=== PATIENT | female | born 1975 | race Caucasian/White ===

== ENCOUNTER 2020-04-25 06:42 | Outpatient (NON) | payer BC, SELFPAY ==
[2020-04-28 01:48] LABS: SARS-CoV-2 RNA PCR Negative
== END 2020-04-25 06:43 ==
LOC: ANHCOVIDDT 06:53
PROVIDERS: PCP Family Medicine Adolescent Medicine; Visit Provider Family Medicine Adolescent Medicine
DX: J02.9 Acute pharyngitis, unspecified (principal); R50.9 Fever, unspecified
CPT/HCPCS: 87635; C9803; U0003

== ENCOUNTER 2021-07-02 09:36 | Outpatient (CLI) | payer BC, SELFPAY ==
[2021-07-02 11:07] LABS: Hematocrit 41.9 % (37.0-47.0); Mean Corpuscular HGB Conc 33.4 g/dl (32-36); Mean Corpuscular Hemoglobin 32.3 pg (26-34); Mean Corpuscular Volume 96.5 fl (80-100); Mean Platelet Volume 10.1 fl (7.4-10.4); Platelet Count Result 404 k/mm3 (150-375); Red Blood Count 4.34 M/mm3 (4.2-5.4); Red Cell Distribution Width 12.8 % (11.5-14.5); White Blood Count 7.4 K/mm3 (4.5-10.0)
[2021-07-02 11:26] LABS: Vitamin D 25 Hydroxy 25.5 ng/mL
[2021-07-02 11:48] LABS: Alanine Aminotransferase 21 U/L (4-35); Albumin Level 4.3 g/dL (3.5-5.1); Alkaline Phosphatase 83 U/L (38-126); Anion Gap 4 mmol/L (8-16); Aspartate Amino Transferase 26 U/L (14-36); Bilirubin,Total 0.7 mg/dL (0.2-1.3); Blood Urea Nitrogen 9 mg/dL (7-17); Calcium 9.1 mg/dL (8.4-10.2); Carbon Dioxide 24 mmol/L (22-30); Chloride 108 mmol/L (98-107); Cholesterol 298 mg/dL (0-200); Estimated Glomerular Filt Rate 60; Glucose 101 mg/dL (65-110); HDL Direct 50 mg/dL; Magnesium 2.1 mg/dL (1.6-2.3); Potassium 4.2 mmol/L (3.4-5.0); Sodium 136 mmol/L (137-145); Triglycerides 305 mg/dL (<150)
[2021-07-02 12:00] LABS: LDL Cholesterol Direct 188 mg/dL
[2021-07-02 12:18] LABS: Cortisol Random 3.54 ug/dL
[2021-07-04 06:43] LABS: FSH 2.5 mIU/mL (***); LH 2.1 mIU/mL (***); Progesterone 7.5 ng/mL (***)
[2021-07-05 23:35] LABS: Testosterone Total 21 ng/dL (2-45)
== END 2021-07-02 09:37 | disposition home or self-care (01) ==
LOC: ANHLAB 09:38
PROVIDERS: PCP Family Medicine; Visit Provider Nurse Practitioner Family
DX: R53.83 Other fatigue (principal); L68.9 Hypertrichosis, unspecified; Z13.220 Encounter for screening for lipoid disorders; G25.81 Restless legs syndrome; Z68.31 Body mass index [BMI] 31.0-31.9, adult; L60.8 Other nail disorders
CPT/HCPCS: 36415; 80053; 80061; 82306; 82533; 82607; 82672; 83001; 83002; 83525; 83735; 84144; 84403; 84443; 85027

== ENCOUNTER 2021-08-29 09:57 | Outpatient (CLI) | payer BC, SELFPAY | END 2021-08-29 09:58 | disposition home or self-care (01) | PROVIDERS: PCP Family Medicine; Visit Provider Otolaryngology | DX: H93.11 Tinnitus, right ear (principal) | CPT/HCPCS: 92557; 92567 ==

== ENCOUNTER 2021-09-24 09:22 | Outpatient (CLI) | payer BC, SELFPAY ==
[2021-09-24 09:53] LABS: Cholesterol 267 mg/dL (0-200); HDL Direct 47 mg/dL; Triglycerides 143 mg/dL (<150)
[2021-09-24 10:04] LABS: LDL Cholesterol Direct 161 mg/dL
[2021-09-24 10:47] LABS: Vitamin D 25 Hydroxy 48.5 ng/mL
== END 2021-09-24 09:23 | disposition home or self-care (01) ==
PROVIDERS: PCP Family Medicine; Visit Provider Nurse Practitioner Family
DX: E55.9 Vitamin D deficiency, unspecified (principal); E78.5 Hyperlipidemia, unspecified
CPT/HCPCS: 36415; 80061; 82306

== ENCOUNTER → 2021-11-02 00:06 | Outpatient (CLI) | payer BC, SELFPAY ==
[2021-11-02 11:29] LABS: SARS-CoV-2 RNA PCR Positive
== END ==
PROVIDERS: PCP Nurse Practitioner Family; Visit Provider Nurse Practitioner Family
DX: U07.1 COVID-19 (principal)
CPT/HCPCS: C9803; U0003; U0005

== ENCOUNTER 2022-07-30 11:21 | Outpatient (CLI) | payer BC, SELFPAY ==
[2022-07-30 11:42] LABS: Basophils Absolute Auto 0.1 K/mm3 (0.0-0.1); Basophils Percent Auto 0.8 % (0.2-1.2); Eosinophils Absolute Auto 0.2 K/mm3 (0-0.3); Hematocrit 41.7 % (37.0-47.0); Hemoglobin 14.2 g/dL (12.0-15.0); Immature Granulocyte Absolute 0.05 K/mm3 (0.00-0.031); Immature Granulocyte Percent A 0.5 % (0-0.5); Lymphocytes Percent Auto 29.2 % (18.3-44.2); Mean Corpuscular HGB Conc 34.1 g/dl (32-36); Mean Corpuscular Hemoglobin 31.3 pg (26-34); Mean Corpuscular Volume 91.9 fl (80-100); Mean Platelet Volume 9.9 fl (7.4-10.4); Monocytes Absolute Auto 0.8 K/mm3 (0.1-0.6); Monocytes Percent Auto 7.9 % (2.6-8.5); Neutrophils Absolute Auto 5.7 K/mm3 (1.3-6.7); Neutrophils Percent Auto 59.6 % (45.5-73.1); Platelet Count Result 394 k/mm3 (150-375); Red Blood Count 4.54 M/mm3 (4.2-5.4); Red Cell Distribution Width 12.9 % (11.5-14.5); White Blood Count 9.6 K/mm3 (4.5-10.0)
[2022-07-30 11:59] LABS: Hemoglobin A1C 5.4 % (<5.7)
[2022-07-30 12:07] LABS: Alanine Aminotransferase 18 U/L (6-35); Albumin Level 4.4 g/dL (3.5-5.1); Alkaline Phosphatase 83 U/L (38-126); Anion Gap 6 mmol/L (8-16); Aspartate Amino Transferase 23 U/L (14-36); Bilirubin,Total 0.5 mg/dL (0.2-1.3); Blood Urea Nitrogen 15 mg/dL (7-17); Calcium 9.5 mg/dL (8.4-10.2); Carbon Dioxide 23 mmol/L (22-30); Chloride 108 mmol/L (98-107); Estimated Glomerular Filt Rate > 60; Glucose 84 mg/dL (65-110); Magnesium 2.2 mg/dL (1.6-2.3); Potassium 4.3 mmol/L (3.4-5.0); Sodium 137 mmol/L (137-145)
[2022-07-30 12:17] LABS: Free T4 Free Thyroxine 0.92 ng/mL (0.78-2.19); Vitamin D 25 Hydroxy 46.7 ng/mL
== END 2022-07-30 11:22 | disposition home or self-care (01) ==
LOC: ANHLAB 11:23
PROVIDERS: PCP Family Medicine; Visit Provider Nurse Practitioner Family
DX: R53.83 Other fatigue (principal); F41.8 Other specified anxiety disorders; E55.9 Vitamin D deficiency, unspecified; E78.2 Mixed hyperlipidemia
CPT/HCPCS: 36415; 80053; 82306; 82607; 83036; 83735; 84439; 84443; 85025

== ENCOUNTER 2023-01-21 11:30 | Outpatient (CLI) | payer BC, SELFPAY ==
[2023-01-21 11:50] LABS: Basophils Absolute Auto 0.1 K/mm3 (0.0-0.1); Basophils Percent Auto 0.7 % (0.2-1.2); Eosinophils Absolute Auto 0.1 K/mm3 (0-0.3); Eosinophils Percent Auto 1.5 % (0-4.4); Hematocrit 42.2 % (37.0-47.0); Hemoglobin 14.1 g/dL (12.0-15.0); Immature Granulocyte Absolute 0.06 K/mm3 (0.00-0.031); Immature Granulocyte Percent A 0.6 % (0-0.5); Lymphocytes Absolute Auto 2.35 K/mm3 (0.9-3.2); Lymphocytes Percent Auto 24.5 % (18.3-44.2); Mean Corpuscular HGB Conc 33.4 g/dl (32-36); Mean Corpuscular Hemoglobin 31.8 pg (26-34); Mean Corpuscular Volume 95.3 fl (80-100); Mean Platelet Volume 9.9 fl (7.4-10.4); Monocytes Absolute Auto 0.7 K/mm3 (0.1-0.6); Monocytes Percent Auto 7.4 % (2.6-8.5); Neutrophils Absolute Auto 6.3 K/mm3 (1.3-6.7); Neutrophils Percent Auto 65.3 % (45.5-73.1); Platelet Count Result 380 k/mm3 (150-375); Red Blood Count 4.43 M/mm3 (4.2-5.4); Red Cell Distribution Width 12.3 % (11.5-14.5); White Blood Count 9.6 K/mm3 (4.5-10.0)
[2023-01-21 13:32] LABS: Alanine Aminotransferase 18 U/L (6-35); Albumin Level 4.3 g/dL (3.5-5.1); Alkaline Phosphatase 78 U/L (38-126); Anion Gap 6 mmol/L (8-16); Aspartate Amino Transferase 21 U/L (14-36); Bilirubin,Total 0.2 mg/dL (0.2-1.3); Blood Urea Nitrogen 9 mg/dL (7-17); CRP < 0.5 mg/dL (<1.0); Calcium 9.4 mg/dL (8.4-10.2); Carbon Dioxide 26 mmol/L (22-30); Chloride 104 mmol/L (98-107); Estimated Glomerular Filt Rate > 60; Glucose 85 mg/dL (65-110); Potassium 4.1 mmol/L (3.4-5.0); Sodium 136 mmol/L (137-145)
[2023-01-21 14:30] LABS: Erythrocyte Sedimentation Rate 11 mm/hr (0-20)
== END 2023-01-21 11:31 | disposition home or self-care (01) ==
PROVIDERS: PCP Family Medicine; Visit Provider Internal Medicine Hematology & Oncology
DX: D75.838 Other thrombocytosis (principal)
CPT/HCPCS: 36415; 80053; 85025; 85652; 86140

== ENCOUNTER 2024-07-22 12:06 | Outpatient (CLI) | payer BC, SELFPAY ==
--- NOTE | ~2024-07-22 | XR_ITS ---
EXAMINATION: XR sacrum coccyx min 2V DATE: 07/22/2024 12:32 INDICATION: Low back pain, unspecified. TECHNIQUE: 3 views of the sacrum and coccyx were obtained. COMPARISON: None. FINDINGS: There is lumbar levoscoliosis and mild spondylosis. No fracture. There is mild osteoarthrit is of the sacroiliac joints. IMPRESSION: 1. Mild osteoarthritis of the sacroiliac joints. Reviewed, dictated and finalized at location [facility]. [facility]
--- NOTE | ~2024-07-22 | XR_ITS ---
EXAMINATION: XR lumbar spine 2-3V DATE: 07/22/2024 12:32 INDICATION: Low back pain, unspecified. TECHNIQUE: 3 views of lumbar spine were obtained. COMPARISON: None. FINDINGS: There is 13 degrees levoscoliosis of lumbar spine. Vertebral body heights are normal. There is mildly decreased disc height at L2-L3. There are endplate osteophytes at most levels. There is mu ltilevel [id number]-[id number] facet joint osteoarthritis. IMPRESSION: 1. Mild lumbar spondylosis. 2. Lumbar levoscoliosis. Reviewed, dictated and finalized at location A. [facility]
--- OUTSIDE RECORDS SUMMARY | 2024-07-22 12:10 | XMS_ITS | Clinical Summary ---
Author Organization [facility] [employer] Address [address] [place] [address] Care Team Providers Care Fruit Or Nut Farmer Name Role Phone Unavailable Primary Care Provider Unavailabl e Source Comments [facility] [employer],non-owned Affiliates and Associated Physician Practices is amultiple site organization consisting of ambulatory clinics and hospital sitesin [place], [place], [place] and [place]. This disclosure is being madepursuant to the Care Everywhere program and may not contain all information available regarding this patient. Last updated 18.[facility] [employer] Social History Tobacco Use Types Packs/Day Years Used Date Smoking Tobacco: Never Assessed Sex and Gender Information Value Date Recorded Sex Assigned at Not on file Gender Identity Not on file Sexual Orientation Not on file Plan of Treatment Health Maintenance Due Date Last Done Comments COLOGUARD (AGES 45-75) - COL ON CA SCREENING 1975 COLON MONITORING 1975 COLONOSCOPY - COLON CA SCREENING 1975 CT COLONOGRAPHY - COLON CA SCREENING 1975 Colorectal Cancer Screening 1975 FIT - COLON CA SCREENING 1975 FLEX SIG - COLON CA SCREENING 1975 LIPID TESTING 1975 MAMMOGRAM 1975 PAP SMEAR 1975 HIV SCREENING 1990 HEPATITIS C SCREENING 02/05/1993 DTAP/TDAP/TD VACCINES (1 - Tdap) 1994 HEPATITIS B VACCINE (1 of 3 - 19+ 3-dose series) 1994 COVID-19 VACCINE ( - 2023-2 5 season) 2024 INFLUENZA VACCINE (#1) 2024 DEPRESSION SCREENING 06/01/2024 ZOSTER VACCINE (1 of 2) 2025 HIB VACCINE Aged Out No longer eligi ble based on patient's age to complete this topic HPV VACCINE Aged Out No longer eligi ble based on patient's age to complete this topic MENINGOCOCCAL (Group B) VACCINE Aged Out No longer eligible based on patient's age to complete this topic MENINGOCOCCAL VACCINE Aged Out No cristofer chelsea eligible based on patient's age to complete this topic PNEUMOCOCCAL VACCINE Aged Out No long er eligible based on patient's age to complete this topic
--- OUTSIDE RECORDS SUMMARY | 2024-07-22 12:10 | XMS_ITS | Referral Summary ---
Author Organization [facility] Address [address] [place] [address] Care Team Providers Care Java Application Engineer Name Role Phone Yee Kee VICE PRESIDENT GLOBAL ADVERTISING SALES Unavailable [phone] Austen Law MD Primary Care Prov ider Allergies Active Allergy Reactions Criticality Noted Date Comments Codeine Itching Low 02/15/2021 Meperidine Vomiting,Nausea And Vomiting Low 021 Medications buPROPion XL (WELLBUTRIN XL) 150 mg 24 hr tabletIndicatio ns:to counter side effects from cymbalta Take 450 mg by mouth every morning 10/18/2020 Active multivitamin capsuleIndicati ons:Vitamin Deficiency Prevention Take 1 capsule by mouth every morning Active rOPINIRole (REQUIP) 2 mg tablet Take 1 tablet (2 mg total) by mouth nightly Active desvenlafaxine ER 50 mg 24 hr tablet Take 1 tablet (50 mg total) by mouth daily Active phentermine 37.5 mg capsule Take by mouth Active tiZANidine (ZANAFLEX) 2 mg tablet Take 1 tablet (2 mg total) by mouth 3 (three) times a day as needed 08/11/2023 Active estradioL (CLIMARA) 0.075 mg/24 hrIndications:V asomotor Symptoms associated with Menopause Place 1 patch on the skin once a week 4 patch 3 11/06/2023 5 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 Overview (10/16/2023): Added automatically from request for surgery [id number] Added automatically from request for surgery [id number] Social History Tobacco Use Types Packs/Day Years Used Date Smoking Tobacco: Former Cigarettes Smokeless Tobacco: Never Tobacco Cessation:Counseling Given: Not Answered Comments:Quit social smoking ~2015 AUDIT-C Answer Date [...] Orientation Straight 01/13/2021 8: 05 PM CDT Last Filed Vital Signs Vital Sign Reading Time Taken Comments Blood Pressure 113/76 10/16/2023 11:29 AM CDT Pulse 81 10/16/2023 11:29 AM CDT Temperature 36.7 C (98.1 F) 10/16/2023 11:29 AM CDT Respiratory Rate 16 10/16/2023 11:29 AM CDT Oxygen Saturation 99% 10/16/2023 11:29 AM CDT Inhaled Oxygen Concentration - - Weight 77.6 kg (171 lb) 10/16/2023 11:29 AM CDT Height 162 cm (5' 3.78 ) 10/16/2023 11:29 AM CDT Body Mass Index 29.55 10/16/2023 11:29 AM CDT Plan of Treatment Not on file Procedures Procedure Name Priority Date/Time Associated Diagnosis Comments PAP AND HIGH RISK HPV, REFLEX TO GENOTYPING Routine 10/19/2023 7:27 AM CDT Adenocarcinoma in situ of cervix SCREENING MAMMOGRAM BILATERAL W ALOK Schedule Routine, Read Routine (OP Routine) 11/27/2021 2:38 PM CDT Adenocarcinoma in situ of cervix Encounter for screening mammogram for malignant neoplasm of breast from Last 3 Months or Most Recently Relevant to Health Maintenance Results * Pap and High Risk HPV and Genotyping (Cytology Component) (10/19/2023 7:27 AM CDT) Thin prep (Pap test) 10/19/2023 7:27 AM CDT 10/19/2023 9:37 AM CDT Narrative PATHOLOGY [facility] - 10/22/2023 9:21 AM CDT EPIC results best viewed via link to PDF [facility] [place] [address] Note to Patients: This report may contain a detailed description of human tissue sent by a health care provider to the laboratory for pathologic evaluation. The content of this report is essential for diagnosis and may provide important critical findings. This information may be unfamiliar to patients to review without a medical professional present. It is advised that the patient review this report in the presence of a health care provider who can answer questions and explain the details. CYTOPATHOLOGY REPORT FINAL Patient Name: AMI RICKS Gender: F : 1975 (Age: 48) Address: [address] [place], [place] [id number] Hospital #: [id number] Service: UNKNOWN Location: Patient Type: [facility] SPECIMEN Taken: 10/19/2023 Received: 10/19/2023 Accessioned: 10/19/2023 Reported: 10/22/2023 Physician(s): Sallie Huertas M.D. FINAL INTERPRETATION SOURCE OF SPECIMEN Liquid based Thin Prep pap with HPV: STATEMENT OF ADEQUACY - Satisfactory for evaluation, vaginal smear GENERAL CATEGORIZATION: - Negative for squamous intraepithelial lesion or malignancy Comments (Normal-Negative for High Risk HPV) HPV HR 16 vaginal- Negative HPV HR 18 vaginal- Negative HPV HR non 16/18 vaginal- Negative Comment: The following Other High Risk HPV types were not detected: 31, 33, 35, 39, 45, 51, 52, 56, 58, 59, 66, and 68 ADDITIONAL INFORMATION Testing was performed using the jose manuel HPV assay ([employer] This test has been modified from the solutions engineer's instructions. Its performance characteristics were determined by [facility] in a manner consistent with CLIA requirements. This test has not been cleared or approved by the U.S. Food and Drug Administration. Test Performed by: [address] [address] Commodity Director: Feliciano Ndiaye M.D. Ph.D.; CLIA# [id number] [facility]/10/22/2023 09:21 MIK Youssef (ASCP) Report Electronically Reviewed and Signed Out By MIK Youssef (ASCP) 10/22/2023 09:21:11 Cervicovaginal Cytology (Pap Test) Disclaimer: The Pap test is a screening test used to detect cervical cancer and its precursors; it is not a diagnostic procedure. False negative and false positive results do occur. Pap test results should be interpreted in the context of pertinent clinical information and biopsy results as indicated. [facility] Clinical Laboratory Improvement Amendments (CLIA) mandate that cytologic and histologic results be correlated for laboratory senior quality engineer & improvement standards. FOR ALL HIGH-GRADE CASES we request submission of follow-up histological material and/or reports that have not been previously provided so that we may fulfill said required standards. Gross Description A. Liquid based Thin Prep pap with HPV: Vaginal - diagnostic ThinPrep Clinical Diagnosis and History Last Menstrual Period: unknown The patient is a 48 year old female with h/o AIS. Report Images and scanned documents, if included only viewable in PDF version The performance characteristics of some immunohistochemical stains, in-situ hybridization and fluorescence in-situ hybridization tests and immunophenotyping by flow cytometry cited in this report (if any) were determined by the Surgical Pathology Department at [facility] as part of an ongoing water quality analyst program and in compliance with federally mandated regulations drawn from the Clinical Laboratory Improvement Act of 1988 (CLIA '88). Some of these tests rely on the use of analyte specific reagents and are subject to specific labeling requirements by the US Food and Drug Administration. Such diagnostic tests may only be performed in a facility that is certified by the Department of Health and Human Services as a high complexity laboratory under CLIA '88. The FDA has determined that such clearance or approval is not necessary. This test is used for clinical purposes. It should not be regarded as investigational or for research. Nevertheless, federal rules concerning the medical use of analyte specific reagents require that the following disclaimer be attached to the report: This test was developed and its performance characteristics determined by the Surgical Pathology Department of [facility]. It has not been cleared or approved by the U. S. Food and Drug Administration. Sallie Huertas MD LAB CYTOLOGY ORDERABLES Final Result Performing Organization Address City/State/[facility] Co de Phone Number PATHOLOGY [facility] 3rd Floor [place], [place] [phone] * SCREENING MAMMOGRAM BILATERAL W ALOK (11/27/2021 2:38 PM CDT) Anatomical Region Laterality Modality Breast Bilateral Mammography Narrative 12/04/2021 10:11 AM CDT Mammogram Technique: Bilateral Digital Breast Tomosynthesis, Bilateral C-view 2D Screening mammogram. Views obtained: bilateral craniocaudal and bilateral mediolateral oblique. Computer Aided Detection was performed. Mammogram Findings: The present examination has been compared to a prior imaging study performed at [facility] on 01/29/2015. The breasts are heterogeneously dense, which may obscure small masses. There are round calcifications with grouped distribution in the middle of the right breast at 3 o'clock. There is no suspicious abnormality in the left breast. Impression: Calcifications in the right breast require additional evaluation. A diagnostic mammogram of the right breast is recommended at this time. OVERALL FINAL ASSESSMENT: BI-RADS CATEGORY 0: Incomplete: Need additional imaging evaluation. Procedure Note Noy Quinones MD - 12/04/2021 Mammogram Technique: Bilateral Digital Breast Tomosynthesis, Bilateral C-view 2D Screening mammogram. Views obtained: bilateral craniocaudal and bilateral mediolateral oblique. Computer Aided Detection was performed. Mammogram Findings: The present examination has been compared to a prior imaging study performed at [facility] on 01/29/2015. The breasts are heterogeneously dense, which may obscure small masses. There are round calcifications with grouped distribution in the middleof the right breast at 3 o'clock. There is no suspicious abnormality in the left breast. Impression: Calcifications in the right breast require additional evaluation. A diagnostic mammogram of the right breast is recommended at this time. OVERALL FINAL ASSESSMENT: BI-RADS CATEGORY 0: Incomplete: Need additional imaging evaluation. Sallie Huertas MD IMG MAMMO PROCEDURES Fi nal Result from Last 3 Months or Most Recently Relevant to Health Maintenance Insurance [employer] Care Teams Java Application Engineer Relationship Specialty Start Date End Date Austen Law MD [address] [place] [address] PCP - General Family Medicine 12/14/20 Yee Kee NP Nurse Practitioner Obstetrics and Gynecology 11/23/20
--- OUTSIDE RECORDS SUMMARY | 2024-07-22 12:10 | XMS_ITS | Encounter Summary ---
Author Organization [facility] Healthcare Address [address] [place] [address] Care Team Providers Care Psychometrist Name Role Phone Unavailable Primary Care Provider Unavailabl e Reason for Visit * Diagnostic Imaging (Routine) - Closed Specialty Diagnoses / Procedures Referred By Contac t Referred To Contact Procedures Breast Imaging Screening Outside Reference Referral, Self Referral ID Status Reason Start Date Expiration Date Visits Re quested Visits Authorized [id number] Closed 12/03/2021 01/02/2023 1 1 Encounter Details Date Type Department Care Team (Late st Contact Info) Description 01/29/2015 Hospital Encounter [facility] [address] [place] [address] Social History Tobacco Use Types Packs/Day Years [...] only and have not been reviewed by [facility]iology. There will be no report generated by a [facility] Radiologist. Narrative RAD_MAMMO_[facility] - 12/03/2021 11:48 AM CDT EXAMINATION: Images For Reference Purposes Only us Self Referral IMG MAMMO PROCEDURES Final Resul t RAD_MAMMO_[facility] documented in this encounter Visit Diagnoses Not on filedocumented in this encounter
--- OUTSIDE RECORDS SUMMARY | 2024-07-22 12:10 | XMS_ITS | Referral Summary ---
Author Organization [facility] Address [address] [place] [address] Care Team Providers Care Electric Arc Furnace Operator Name Role Phone Unavailable Primary Care Provider Unavailabl e Source Comments [facility],non-owned Affiliates and Associated Physician Practices is amultiple site organization consisting of ambulatory clinics and hospital sitesin [place], [place], [place] and [place]. This disclosure is being madepursuant to the Care Everywhere program and may not contain all information available regarding this patient. Last updated 18.[facility] [employer] Social History Tobacco Use Types Packs/Day Years Used Date Smoking Tobacco: Never Assessed Sex and Gender Information Value Date Recorded Sex Assigned at Not on file Gender Identity Not on file Sexual Orientation Not on file Plan of Treatment Not on file
--- OUTSIDE RECORDS SUMMARY | 2024-07-22 12:10 | XMS_ITS | Clinical Summary ---
Author Organization [facility] Address [facility] [place] [address] Care Team Providers Care Undercar Specialist Name Role Phone Yee Kee LINK TRAINER OPERATOR Unavailable [phone] Austen Law MD Primary Care Prov ider [...] (10/16/2023): Added automatically from request for surgery [id number] Added automatically from request for surgery [id number] Surgical History Surgery Date Site/Laterality Comments LAPAROSCOPY 06/01/2005 - 05/31/2006 for endometriosis DILATION AND CURETTAGE OF UTERUS [phone] pt had multiple ADENOIDECTOMY 06/01/1981 - 05/31/1982 SECTION 06/01/2012 - 05/31/2013 TUBAL LIGATION 06/01/2012 - 05/31/2013 CERVICAL CONE BIOPSY 11/29/2020 - 12/29/2020 Medical History Medical History Date Comments PONV (postoperative nausea and vomiting) with demerol Endometriosis 2003 Adenocarcinoma of cervix (CMS/HCC) (HCC) Dxd 11/2020 Family History * Patient is adopted Medical History Relation Name Comments PONV Daughter with demerol Anesthesia problems Neg Hx Relation Name Status Comments Daughter Social History Tobacco Use Types Packs/Day Years [...] Orientation Straight 01/13/2021 8: 05 PM CDT Obstetrics History Para Term AB IAB SAB Ectopic Multiple Livin g Live Births 2 2 2 2 Date Outcome GA Total Labor Labor/2nd/3rd Weight Sex Type Anes PTL Gregoria A1 A5 Name Clin Term Term Last Filed Vital Signs Vital Sign Reading [...] 10/16/2023 11:29 AM CDT Plan of Treatment Health Maintenance Due Date Last Done Comments Colon Cancer Screening-Colonoscopy 1975 Depression Screening 1975 Hepatitis C Screening 1975 DTaP/Tdap/Td Vaccine (1 - Tdap) 1986 Hepatitis B Screening 1993 Regular Well Visit/Exam 18-64 1993 Breast Cancer Screening-Mammogram 11/27/2022 11/27/2021 Covid-19 Vaccine (3 - 2023-2 5 season) 2024 12/12/2020, 11/21/2020 Influenza Vaccine (#1) 2024 Cervical Cancer Screening 10/18/20242023, 10/10/2022, 10/04/2021 Pneumococcal vaccine <65 Aged Out No longer eligible based on patient's age to complete this topic Procedures Procedure Name Priority Date/Time Associated Diagnosis [...] CDT 10/19/2023 9:37 AM CDT Narrative PATHOLOGY [facility] - 10/22/2023 9:21 AM CDT [facility] results best viewed via link to PDF [facility] [place] [address] Note to Patients: This report may contain [...] Gender: F : 1975 (Age: 48) Address: [address] [place] [address] Hospital #: [id number] Service: UNKNOWN Location: Patient Type: [facility] SPECIMEN Taken: 10/19/2023 Received: 10/19/2023 Accessioned: 10/19/2023 [...] performed using the jose manuel HPV assay ([employer] This test has been modified from the timber rider's instructions. Its performance characteristics were determined by [facility] in a manner consistent with CLIA requirements. This test has not been cleared or approved by the U.S. Food and Drug Administration. Test Performed by: [address] [address] Publicity Person: Feliciano Ndiaye M.D. Ph.D.; CLIA# [id number] [facility]/10/22/2023 09:21 MIK Youssef (ASCP) Report Electronically Reviewed [...] clinical information and biopsy results as indicated. [facility] Clinical Laboratory Improvement Amendments (CLIA) mandate that cytologic and histologic results be correlated for laboratory quality control tech & improvement standards. FOR ALL HIGH-GRADE CASES [...] determined by the Surgical Pathology Department at [facility] as part of an ongoing quality officer program and in compliance with federally mandated [...] determined by the Surgical Pathology Department of [facility]. It has not been cleared or approved by the U. S. Food and Drug Administration. Sallie Huertas MD LAB CYTOLOGY ORDERABLES Final Result PATHOLOGY [facility] 3rd Floor [place], [place] [phone] * SCREENING MAMMOGRAM BILATERAL W ALOK (11/27/2021 2:38 PM CDT) Anatomical Region Laterality Modality Breast Bilateral Mammography Narrative 12/04/2021 10:11 AM CDT Mammogram Technique: Bilateral Digital Breast Tomosynthesis, Bilateral C-view 2D Screening mammogram. Views obtained: bilateral craniocaudal and bilateral mediolateral oblique. Computer Aided Detection was performed. Mammogram Findings: The present examination has been compared to a prior imaging study performed at [facility] on 01/29/2015. The breasts are heterogeneously dense, [...] to a prior imaging study performed at [facility] on 01/29/2015. The breasts are heterogeneously dense, [...] Most Recently Relevant to Health Maintenance Insurance [employer] [place] [employer] [place] Care Teams Undercar Specialist Relationship Specialty Start Date End Date Austen Law MD [address] [place] [address] PCP - General Family Medicine 12/14/20 Yee Kee NP Nurse Practitioner Obstetrics and Gynecology 11/23/20
--- OUTSIDE RECORDS SUMMARY | 2024-07-22 12:10 | XMS_ITS | Encounter Summary ---
Author Organization [facility] Healthcare Address [facility] [place] [address] Care Team Providers Care Employer Relations Representative Name Role Phone Unavailable Primary Care Provider Unavailabl e Reason for Visit * Diagnostic Imaging (Routine) - Closed Specialty Diagnoses / Procedures Referred By Contac t Referred To Contact Procedures Breast Imaging Screening Outside Reference Referral, Self Referral ID Status Reason Start Date Expiration Date Visits Re quested Visits Authorized [id number] Closed 12/04/2021 01/03/2023 1 1 Encounter Details Date Type Department Care Team (Late st Contact Info) Description 02/11/2018 Hospital Encounter [facility] [address] [place] [id number] Social History Tobacco Use Types Packs/Day Years [...] only and have not been reviewed by [facility]. There will be no report generated by a [facility] Radiologist. Narrative RAD_MAMMO_BJ - 12/04/2021 1:58 PM CDT EXAMINATION: Images For Reference Purposes Only us Self Referral IMG MAMMO PROCEDURES Final Resul t RAD_MAMMO_[facility] documented in this encounter Visit Diagnoses Not on filedocumented in this encounter
--- OUTSIDE RECORDS SUMMARY | 2024-07-22 12:10 | XMS_ITS | Clinical Summary ---
Author Organization [facility] (Formerly [facility])[3] Juwan Anthony Address [address] [place] [address] Care Team Providers Care Forensic Chemist Name Role Phone Rupert Bull MD Primary Care Provider Allergies Active Allergy Reactions Criticality Noted Date Comments Codeine Itching Low 02/15/2021 Meperidine Nausea and Vomiting Low 12/18/2020 Medications desvenlafaxine (PRISTIQ) 50 mg Extended Release 24 hour tablet Take 50 mg by mouth daily with breakfast. Active Phentermine 37.5 mg Capsule Take by mouth. Active rOPINIRole (REQUIP) 2 mg Tablet Take 2 mg by mouth daily at bedtime. 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 Overview (01/21/2023): Added automatically from request for surgery [id number] Family History Relation Name Status Comments Daughter 1 Alive Daughter 2 Alive Social History Tobacco Use Types Packs/Day Years Used Date Smoking Tobacco: Some Days Cigarettes Smokeless Tobacco: Never Alcohol Use Standard Drinks/Week Comments Not Currently 0 (1 standard drink = 0.6 oz pur e alcohol) Comments Unknown Sex and Gender Information Value Date Recorded Sex Assigned at Not on file Legal Sex Female 8:36 AM CDT Gender Identity Not on file Sexual Orientation Not on file Last Filed Vital Signs Vital Sign Reading Time Taken Comments Blood Pressure 131/75 01/21/2023 10:36 AM CDT Pulse 109 01/21/2023 10:36 AM CDT Temperature 36.2 C (97.2 F) 01/21/2023 10:36 AM CDT Respiratory Rate 12 01/21/2023 10:36 AM CDT Oxygen Saturation 97% 01/21/2023 10:36 AM CDT Inhaled Oxygen Concentration - - Weight 74.4 kg (164 lb) 01/21/2023 10:36 AM CDT Height - - Body Mass Index - - Plan of Treatment Health Maintenance Due Date Last Done Comments PNEUMOCOCCAL VACCINE 0-64 YE ARS (1 of 2 - PCV) 1981 DTAP/TDAP/TD VACCINES (1 - Tdap) 1994 HEPATITIS B VACCINES (1 of 3 - 19+ 3-dose series) 1994 COLORECTAL SCREENING 02/11/2020 Colorectal Cancer Screening 02/11/2020 FIT-DNA Q 3 years 02/11/2020 FIT/FOBT Q 1 year 02/11/2020 Flex Sig/CT Colonography Q 5 years 02/11/2020 BREAST CANCER SCREENING 01/07/2023 01/07/2022, 11/27 INFLUENZA VACCINE (#1) 2023 CERVICAL CANCER SCREENING 10/10/2025 10/10/2022 Insurance [employer] Care Teams Forensic Chemist Relationship Specialty Start Date End Date Rupert Bull MD [address] [place] [address] PCP - General Family Practice 01/21/23
--- OUTSIDE RECORDS SUMMARY | 2024-07-22 12:10 | XMS_ITS | Patient Health Summary ---
Author Organization [facility] Address [address] [place] [address] Care Team Providers Care Lurer Name Role Phone Unavailable Primary Care Provider Unavailabl e Note from [facility],non-owned Affiliates and Associated Physician Practices is amultiple site organization consisting of ambulatory clinics and hospital sitesin [place], [place]. This disclosure is being madepursuant to the Care Everywhere program and may not contain all information available regarding this patient. Last updated [address] [employer] Social History Tobacco Use Types Packs/Day Years Used Date Smoking Tobacco: Never Assessed Sex and Gender Information Value Date Recorded Sex Assigned at Not on file Gender Identity Not on file Sexual Orientation Not on file
== END 2024-07-22 12:07 | disposition home or self-care (01) ==
PROVIDERS: PCP Family Medicine; Visit Provider Physician Assistant Medical
DX: M47.898 Other spondylosis, sacral and sacrococcygeal region (principal); M47.816 Spondylosis without myelopathy or radiculopathy, lumbar region; M41.86 Other forms of scoliosis, lumbar region
CPT/HCPCS: 72100; 72220

== ENCOUNTER 2025-04-01 13:18 | Outpatient (CLI) | payer BC, SELFPAY ==
--- OUTSIDE RECORDS SUMMARY | 2015-01-29 | XMS_ITS | Encounter Summary ---
Author Organization [facility] Healthcare Address [address] [place] [address] Care Team Providers Care [place] Seamer Name Role Phone Unavailable Primary Care Provider Unavailabl e Reason for Visit * Diagnostic Imaging (Routine) - Closed Specialty Diagnoses / Procedures Referred By Contac t Referred To Contact Procedures Breast Imaging Screening Outside Reference Referral, Self Referral ID Status Reason Start Date Expiration Date Visits Re quested Visits Authorized [id number] Closed 12/03/2021 01/02/2023 1 1 Encounter Details Date Type Department Care Team (Late st Contact Info) Description 01/29/2015 Hospital Encounter [facility] [address] [place] [address] Social History Tobacco Use Types Packs/Day Years Used Date Smoking Tobacco: Former Cigarettes Smokeless Tobacco: Never Comments:Quit social smoking ~2015 AUDIT-C Answer Date Recorded Q1: How often do you have a drink containing alc ohol? Never 02/19/2021 Average Number of Drinks Not on file 021 Frequency of Binge Drinking Not on file 01/31 Comments No Sex and Gender Information Value Date Recorded Sex Assigned at Not on file Legal Sex Female 1:38 PM CDT Gender Identity Female 01/13/2021 8:05 PM CDT Sexual Orientation Straight 01/13/2021 8: 05 PM CDT documented as of this encounter Functional Status documented as of this encounter Plan of Treatment Not on file documented as of this encounter Procedures Procedure Name Priority Date/Time Associated Diagnosis Comments BREAST IMAGING MG SCREENING OUTSIDE REFERENCE Routine 01/29/2015 12:00 AM CDT documented in this encounter Results * Breast Imaging Screening Outside Reference (01/29/2015 12:00 AM CDT) Impressions RAD_MAMMO_[facility] - 12/03/2021 11:48 AM CDT These images are for Reference purposes only and have not been reviewed by [facility]. There will be no report generated by a [facility] Radiologist. Narrative RAD_MAMMO_[facility] - 12/03/2021 11:48 AM CDT EXAMINATION: Images For Reference Purposes Only us Self Referral IMG MAMMO PROCEDURES Final Resul t RAD_MAMMO_[facility] documented in this encounter Visit Diagnoses Not on filedocumented in this encounter
--- OUTSIDE RECORDS SUMMARY | 2018-02-11 | XMS_ITS | Encounter Summary ---
Author Organization [facility] Healthcare Address [facility] [place] [address] Care Team Providers Care Psychology Lecturer Name Role Phone Unavailable Primary Care Provider Unavailabl e Reason for Visit * Diagnostic Imaging (Routine) - Closed Specialty Diagnoses / Procedures Referred By Contac t Referred To Contact Procedures Breast Imaging Screening Outside Reference Referral, Self Referral ID Status Reason Start Date Expiration Date Visits Re quested Visits Authorized [id number] Closed 12/04/2021 01/03/2023 1 1 Encounter Details Date Type Department Care Team (Late st Contact Info) Description 02/11/[address] [facility]iology [facility] [address] [place] [id number] Social History Tobacco Use Types Packs/Day Years [...] BREAST IMAGING MG SCREENING OUTSIDE REFERENCE Routine 02/11/2018 12:00 AM CDT documented in this encounter Results * Breast Imaging Screening Outside Reference (02/11/2018 12:00 AM CDT) Impressions [facility]_MAMMO[facility] - 12/04/2021 1:58 PM CDT These images are for Reference purposes only and have not been reviewed by [facility]. There will be no report generated by a [facility] Radiologist. Narrative RAD_MAMMO_[facility] - 12/04/2021 1:58 PM CDT EXAMINATION: Images For Reference Purposes Only us Self Referral IMG MAMMO PROCEDURES Final Resul t RAD_MAMMO_[facility] documented in this encounter Visit Diagnoses Not on filedocumented in this encounter
--- NOTE | ~2025-04-01 | MR_ITS ---
EXAMINATION: MR lumbar spine wo con DATE: 04/01/2025 14:15 INDICATION: Other forms of scoliosis, site unspecified. TECHNIQUE: Magnetic resonance imaging (MRI) of the lumbar spine was performed without intravenous contrast. Sequences included sagittal T2-weighted FSE, sagittal T2-weighted FS FSE, sagittal T1-weighted FSE, and axial T2-weighted FSE. COMPARISON: Lumbar spine radiographs 07/22/2024 FINDINGS: There is 16 degrees levoscoliosis of lumbar spine. Vertebral body heights are normal. There is mildly decreased disc height at L4-L5 and L5-S1. The distal spinal cord signal intensity is normal. The conus medullaris is at L1. The following disc levels are specifically discussed: L1-L2: There is a central protrusion. There is mild bilateral facet joint osteoarthritis. There is no neural foraminal stenosis. There is mild central canal stenosis. L2-L3: The disc is bulging and has an annular fissure. There is mild bilateral facet joint osteoarthritis. There is mild bilateral neural foraminal stenosis. There is mild central canal stenosis. L3-L4: The disc is mildly bulging. There is mild right and moderate left facet joint osteoarthritis. There is mild bilateral neural foraminal stenosis. There is no central canal stenosis. L4-L5: The disc is bulging and has an annular fissure. There is severe bilateral facet joint osteoarthritis. There is mild bilateral neural foraminal stenosis. There is mild central canal stenosis. L5-S1: The disc is bulging and has an annular fissure. There is mild right and moderate left facet joint osteoarthritis. There is mild left neural foraminal stenosis. There is mild central canal stenosis. IMPRESSION: 1. Mild lumbar spondylosis. 2. Lumbar levoscoliosis. Reviewed, dictated and finalized at location E. RTISING JOB TITLES
--- NOTE | ~2025-04-01 | MR_ITS ---
EXAMINATION: MR thoracic spine wo con DATE: 04/01/2025 14:16 INDICATION: Scoliosis, unspecified. TECHNIQUE: Magnetic resonance imaging (MRI) of the thoracic spine was performed without intravenous contrast. COMPARISON: Lumbar spine radiographs 07/02/2024 FINDINGS: There is 7 degrees dextrocurvature of cervicothoracic spine. There is 10 degrees levoscoliosis of mid thoracic spine. There is 10 degrees levoscoliosis of thoracolumbar spine. Vertebral body heights are normal. There is a hemangioma in T2. There is mildly decreased disc height at T5-T6 and T7-T8. The disc do not extend beyond the endplate margins in thoracic spine. There is multilevel mild facet joint osteoarthritis. At T1-T2, there is mild left neural foraminal stenosis. There is no central canal stenosis and thoracic spine. The spinal cord signal intensity is normal. IMPRESSION: 1. Mild thoracic spondylosis. 2. Scoliosis. Reviewed, dictated and finalized at location E. OPERATOR
--- OUTSIDE RECORDS SUMMARY | 2025-04-01 13:22 | XMS_ITS | Patient Health Record ---
Author Organization [facility] [email or web address] [facility] Address [address] [facility] [address] [place] [address] Support Name Relationship Address Phone JOANNE CASTRO Guarantor Unknown [phone] Reason For Referral No Information Medications Medication SIG (Take, Route, Frequency, Duration) Notes Start Date End Date Status buPROPion HCl ER (XL) 300 MG Tablet Extended Release 24 Hour Oral Active oxyCODONE HCl 5 MG Tablet Oral Active Fluconazole 150 MG Tablet Oral Active Ibuprofen 600 MG Tablet Oral Active Amoxicillin 500 MG Capsule Oral Active DULoxetine HCl 60 MG Capsule Delayed Release Particles Oral Active hydrOXYzine HCl 25 MG Tablet Oral Active buPROPion HCl ER (XL) 150 MG Tablet Extended Release 24 Hour Oral Active rOPINIRole HCl 0.25 MG Tablet Oral Active Polyethylene Glycol 3350 17 gram Powder ORAL *Pick strength-form from [employer] for e[employer]* Active Cholecalciferol 1.25 MG (11040 UT) Capsule Oral Active Social History Social History Additional Details Category Social Info Options Details Migrated Social History Migrated Social History Tobacco Years: Current some days smoker 11/04/2021 Plan Of Treatment No Information Insurance Providers Payer Name Payer Address Payer Phone Subscriber Number Group Number Insured Name Patient Relationship to Insured Coverage Start Date Coverage End Date [facility] [address] [place] [address] [id number] GAY CASTRO Spouse - patient is the spouse of the insured
--- OUTSIDE RECORDS SUMMARY | 2025-04-01 13:22 | XMS_ITS | Data Portability ---
Author Organization [facility] Address [address] [place] [address] Care Team Providers Care Office Services Associate Name Role Phone KAROLINE YOST Primary Care Provider Assessment Encounter Date Assessment Date Assessment LastModified by Organization Details LastModified Time 08/21/2020 08/21/2020 Annual gynecological exam performed. Patient will come back in a year unless there are new symptoms. [email or web address] Not available 08/21/2020 10:26:00 11/16/2020 11/16/2020 Unbillable visit. Colpo training with Vidhya. [email or web address] Not available 11/16/2020 12:52:07 11/16/2020 11/16/2020 pt sarah well, await pathology, f/u DR sung would like to discuss hysterectomy and bladder prolapse [email or web address] Not available 11/16/2020 13:10:18 Plan of Treatment Reminders Order Date Submit Date Provider Last Modified By Organization Details Last Modified Time Details Appointments None recorded. Lab None recorded. Referral gastroenter ologist referral 2023 024 [facility], [address], [address], [place], [address], 4 05:01:01 Procedures None recorded. Surgeries None recorded. Imaging MAMMO, screening, digital, bilateral 2023 024 [facility] (Imaging), [address] [place], [address], 4 12:03:17 Medication Orders estradiol 0.075 mg/24 hr weekly transdermal patch 2023 024 [facility] #[id number], [address], [place], [place], [id number], 4 09:09:06 Slynd 4 mg (28) tablet 2020 021 [email or web address] 1 [facility] #[id number], [address], [place], [place], [id number], 1 12:29:50 Patient TargetsNo targets recorded. Patient InstructionsNo instructions recorded. 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 Referral for Screening for malignant neoplasm of colon Referring Physician: Kimberly Madden, ARCHITECTURAL TECHNICIAN, Encounter Date: 11/13/2023 Results Created Date Observation Date Name Description Value Unit Range Abnormal Flag Note LastModifiedBy Organization Detail LastModifiedTime 08/22/19 21 08/21/2020 HPV E6+E7 mRNA, quali tativ e PCR, cervi x HPV MRNA E6/E7 only, vial (cdh/dch/kh/ vwh) CANCEL LED Lynne cordova Not Available [facility] (Lab) [address], [place], [address], 08/22/2020 11:37:40 08/22/19 21 08/21/2020 pap, IG Pap test SEE RESULT S BELOW CASE REPOR T: Cytol ogy Gynec ologi aldo Repor t Case: [id number] Autho marija duncan Provi felix: Bruno Lucia Colle cted: 08/21 1117 ACCOUNTING TECHNICIAN Order ing Locat ion: [place] Patho logy Recei natalya: 08/22 1307 First Scree n: Bc Hurley , MIK Speci men: Scree afia Pap - Image d, Cervi x STATE MENT OF ADEQU ACY: Satis facto ry for evalu ation Trans forma tion zone compo nent prese nt FINAL DIAGN OSIS: Negat haley for Squam ous Intra epith elial Lesio n Elect tim matos ulises d by Bc Hurley , MIK on 2020 at 4:30 PM ----- ----- ----- ----- ----- ----- ----- ----- ----- ----- ----- ----- ----- ----- ----- ----- ----- ---- HPV RESUL TS: HPV mRNA E6/E7 : Posit haley - HPV mRNA Detec parker HPV GENOT YPE 16 (OSMIN) : Not Detec parker HPV GENOT YPE 18/45 (OSMIN) : Detec parker NOTE: This high risk HPV mRNA assay detec ts fourt een high- risk HPV types (16, 18, 31, 33, 35, 39, 45, 51, 52, 56, 58, 59, 66, 68) witho ut diffe renti ation . This assay can diffe renti ate HPV 16 from HPV 18/45 , but does not diffe renti ate betwe en HPV 18 and HPV 45. A negat haley HPV 16, 18/45 genot ype assay resul t does not exclu de the possi bilit y of cytol ogic abnor malit ies or of futur e or under lying KYUNG 1, KYUNG 3 or cance r. CHART ABLE COMME NT: Note: This speci men was revie wed by a Cytot echno logis t and/o r Patho logis t (as indic ated in this repor t) after evalu ation using the Thinp rep Imagi ng Syste m. CLINI ALDO INFOR MATIO N: Menst rual Statu s: LMP (if appli cable ): Clini aldo Histo ry/Pr eviou s Pap: Type of Neopl candelario (if appli cable ): Other Histo ry: Hormo katerine (if appli cable ): PAP EDUCA GOOD L NOTE: The Pap Test is a scree afia test with an inher ent false negat haley rate. Liqui d-bas e sampl ing may decre ase, but will not elimi daria, false negat haley resul ts. A negat haley resul t does not precl ude the prese nce and/o r devel opmen t of disea se, since the prese nce of abnor mal cells in the sampl e depen ds on the locat ion of the lesio n and sampl ing techn ique. Alexus nued regul ar scree afia is the best metho d of cance r preve ntion . If repor parker cytol ogic findi ng do not corre late with physi aldo and/o r histo rical findi ngs, furth er inves tigat ion is recom bradley d, as clini gale nugent nted. Not Available [facility] (Lab) [address], [place], [address], 08/24/2020 14:04:24 11/17/19 21 11/16/2020 SURGI ALDO PATHO LOGY surgical pathology ([facility]) SEE RESULT S BELOW CASE REPOR T: Surgi aldo Patho logy Repor t Case: [id number] Autho marija Provi felix: Yee Whitmore NP Colle cted: 11/16 1206 Order ing Locat ion: [place] Patho logy Recei natalya: 11/17 0059 Patho logis t: Martha Ziegler MD Speci mens: A) - Endoc ervix , ECC [place] B) - Cervi x, Cervi aldo Bx FINAL DIAGN OSIS: A. 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 B. Cervi x, biops y: -Ecto cervi aldo squam ous mucos a witho ut diagn ostic abnor malit y. -No squam ous intra epith elial lesio n ident ified . Elect tim montgomery d by Martha Ziegler MD on 2020 at 10:20 AM ----- ----- ----- ----- ----- ----- ----- ----- ----- ----- ----- ----- ----- ----- ----- ----- ----- ---- CHART ABLE COMME NT: The patie nt's histo ry of posit haley high- risk HPV mRNA test and negat haley Pap smear was noted . The endoc ervic al curet tage conta ins few super ficia l, detac hed fragm ents of gland ular epith elium with nucle ar hyper chrom candelario, rare apica l mitos es, and apopt osis. Immun ohist ochem ical stain for p16 was perfo rmed on block A1 and shows stron g posit ivity withi n these gland s, consi stent with adeno carci noma in situ (AIS) . Contr ols appro priat e. This case was seen in intra depar tment al revie w with agree ment on the above diagn osis on 2020. This test was devel oped and its perfo rmanc e janine cteri stics deter mined by [facility]. It has not been clear ed or appro natalya by the U. S. Food and Drug Admin istra tion. The FDA has deter mined that such clear ance or appro isabell is not neces kamala. This test may be used for clini aldo purpo se. It shoul d not be regar ded as inves tigat ional or for resea rch. This labor atory is certi fied under the Clini aldo Labor atory Impro vemen t Amend ments of 1987 (CLIA ) as quali fied to perfo rm high compl exity clini aldo labor atory testi ng. In cases which have decal cifie d tissu es, the resul ts shoul d be inter prete d with cauti on given the possi bilit y of false negat pa. The posit haley contr ols demon strat e appro priat e posit haley stain ing. The known tissu e negat haley contr ols are negat haley. The non-i mmune serum contr ol was non-r eacti ve. CLINI ALDO INFOR MATIO N: NONE GIVEN MICRO SCOPI C DESCR IPTIO N: A micro scopi c exami natio n was perfo rmed. GROSS DESCR IPTIO N: A. Endoc ervix . The speci men is label ed with the patie nt's name, mehul kingi cs and ECC brush BX. Recei natalya in forma jessee on 2 endoc ervic al brush es and consi sts of an aggre gate of red-t an mucin (1.5 x 1.0 by less than 0.1 cm), submi tted entir lora in casse tte A1. Gross ed by Doris massey B. Cervi x. The speci men is label ed with the patie nt's name, korinog raphi cs and cerv ical BX. Recei natalya in forma jessee and consi sts of a singl e white -briseno tissu e fragm ent (0.5 x 0.3 x 0.2 cm), submi tted entir lora in casse tte B1. Gross ed by Doris massey Not Available [facility] (Lab) [address], [place], [address], 04/17/2021 10:38:18 11/17/19 21 11/16/2020 SURGI ALDO PATHO LOGY surgical pathology SEE RESULT S BELOW ADDEN DUM: At the reque st of Sonia Irene, the slide s were sent out for addit ional consu ltati on at [facility] [address] [facility] [place] [address] and revie wed by Jose ruiz M.D., Ph.D. , who agree s with the origi nal diagn osis. The compl ete repor t has been scann ed into [employer]. This test was devel oped and its perfo rmanc e janine cteri stics deter mined by [facility]. It has not been clear ed or appro natalya by the U. S. Food and Drug Admin istra tion. The FDA has deter mined that such clear ance or appro isabell is not neces kamala. This test may be used for clini aldo purpo se. It shoul d not be regar ded as inves tigat ional or for resea [facility]. This labor atory is certi fied under the Clini aldo Labor atory Impro vemen t Amend ments of 1987 (CLIA ) as quali fied to perfo rm high compl exity clini aldo labor atory testi ng. In cases which have decal cifie d tissu es, the resul ts shoul d be inter prete d with cauti on given the possi bilit y of false negat pa. The posit haley contr ols demon strat e appro priat e posit haley stain ing. The known tissu e negat haley contr ols are negat haley. The non-i mmune serum contr ol was non-r eacti ve. Kuldeep vargas elect tim matos ulises d by Martha Ziegler MD on 04/17 at 9:35 AM ----- ----- ----- ----- ----- ----- ----- ----- ----- ----- ----- ----- ----- ----- ----- ----- ----- ---- CASE REPOR T: Surgi aldo Patho logy Repor t Case: [id number] Autho marija duncan Provi felix: Yee Whitmore NP Colle cted: 11/16 1206 Order ing Locat ion: [place] Patho logy Recei natalya: 11/17 0059 Patho logis t: Martha Ziegler MD Speci mens: A) - Endoc ervix , ECC [place] B) - Cervi x, Cervi aldo Bx FINAL DIAGN OSIS: A. 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 B. Cervi x, biops y: -Ecto cervi aldo squam ous mucos a witho ut diagn ostic abnor malit y. -No squam ous intra epith elial lesio n ident ified . Elect melissamariana montgomery d by Martha Ziegler MD on 2020 at 10:20 AM ----- ----- ----- ----- ----- ----- ----- ----- ----- ----- ----- ----- ----- ----- ----- ----- ----- ---- COMME NT: The patie nt's histo ry of posit haley high- risk HPV mRNA test and negat haley Pap smear was noted . The endoc ervic al curet tage conta ins few super ficia l, detac hed fragm ents of gland ular epith elium with nucle ar hyper chrom candelario, rare apica l mitos es, and apopt osis. Immun ohist ochem ical stain for p16 was perfo rmed on block A1 and shows stron g posit ivity withi n these gland s, consi stent with adeno carci noma in situ (AIS) . Contr ols appro priat e. This case was seen in intra depar tment al revie w with agree ment on the above diagn osis on 2020. This test was devel oped and its perfo rmanc e janine cteri stics deter mined by [facility]. It has not been clear ed or appro natalya by the U. S. Food and Drug Admin istra tion. The FDA has deter mined that such clear ance or appro isabell is not neces kamala. This test may be used for clini aldo purpo se. It shoul d not be regar ded as inves tigat ional or for resea rch. This labor atory is certi fied under the Clini aldo Labor atory Impro vemen t Amend ments of 1987 (CLIA ) as quali fied to perfo rm high compl exity clini aldo labor atory testi ng. In cases which have decal cifie d tissu es, the resul ts shoul d be inter prete d with cauti on given the possi bilit y of false negat pa. The posit haley contr ols demon strat e appro priat e posit haley stain ing. The known tissu e negat haley contr ols are negat haley. The non-i mmune serum contr ol was non-r eacti ve. CLINI ALDO INFOR MATIO N: NONE GIVEN MICRO SCOPI C DESCR IPTIO N: A micro scopi c exami natio n was perfo rmed. GROSS DESCR IPTIO N: A. Endoc ervix . The speci men is label ed with the patie nt's name, demog raphi cs and ECC brush BX. Recei natalya in forma jessee on 2 endoc ervic al brush es and consi sts of an aggre gate of red-t an mucin (1.5 x 1.0 by less than 0.1 cm), submi tted entir lora in casse tte A1. Gross ed by Doris Arzate. Cervi x. The speci men is label ed with the patie nt's name, demog raphi cs and cerv ical BX. Recei natalya in forma jessee and consi sts of a singl e white -briseno tissu e fragm ent (0.5 x 0.3 x 0.2 cm), submi tted entir lora in casse tte B1. Gross ed by Doris massey Not Available [facility] (Lab) [address], [place], [address], 04/17/2021 10:38:18 11/17/19 21 11/16/2020 SURGI ALDO PATHO LOGY surgical pathology CANCEL [facility] Not Available [facility] (Lab) [address], [place], [address], 05/04/2021 10:44:13 11/17/19 21 11/16/2020 pregn jeanette test, urine HCG negati ve Not Available [address] [place], [address], 11/16/2020 12:46:54 12/18/19 24 12/18/2023 MAMMO , scree afia, digit al, bilat eral No observ ation record ed. [facility] [address] [place], [address], 01/05/2024 04:05:10 Result Notes None recorded. Procedures Surgical History Date Name Laterality Status Provider Name and Address Organization Details Recorded Time 02/20/20 21 [facility] 11/09/2023 14:25:55 11/17/19 21 Colposcopy completed Yee Kee CNM [address], [place], [address], [facility] 11/16/2020 13:10:30 11/17/19 21 Colposcopy completed [facility] 11/16/2020 12:30:33 11/17/19 21 Colposcopy completed [facility] 11/16/2020 12:43:42 07/15/19 13 Tubal Ligation completed [facility] 11/09/2023 14:26:28 06/01/19 11 Laparoscopy completed [facility] 11/16/2020 12:41:33 06/01/19 10 Laparoscopy completed [facility] 11/16/2020 12:42:49 06/01/19 09 Laparoscopy completed [facility] 11/16/2020 12:42:43 06/01/19 08 Laparoscopy completed [facility] 11/16/2020 12:43:05 06/01/19 07 Laparoscopy completed [facility] 11/16/2020 12:42:32 06/01/19 05 diagnostic laparoscopy of female pelvis completed [facility] 11/16/2020 12:42:13 06/01/18 82 adenoid excision completed Angelia [facility] 11/16/2020 12:41:02 Colposcopy completed [facility] 11/09/2023 14:30:54 LEEP completed [facility] 11/09/2023 14:30:42 Imaging Results None recorded. Procedure Notes None recorded. Medical Equipment None Reported. Allergies No known drug allergies Medications Name Sig Start Date Stop Date Status Note LastModified by Organization Details LastModified Time amoxicillin 500 mg capsule TAKE 1 CAPSULE BY MOUTH FOUR TIMES A DAY UNTIL GONE 11/12 completed Not Available Not Available Not Available tizanidine 2 mg tablet TAKE 1 TABLET BY MOUTH THREE TIMES DAILY NEEDED FOR MUSCLE SPASMS 11/12 completed Not Available Not Available Not Available oxybutynin chloride ER 10 mg tablet,exte nded release 24 hr TAKE 1 TABLET BY MOUTH EVERY DAY 08/21 completed Not Available Not Available Not Available fluconazole 150 mg tablet TK 1 T PO TODAY 08/21 completed Not Available Not Available Not Available valacyclovi r 1 gram tablet TAKE 2 TABLETS BY MOUTH EVERY 12 HOURS 11/12 completed Not Available Not Available Not Available estradiol 0.05 mg/24 hr weekly transdermal patch APPLY 1 PATCH TOPICALLY TO THE SKIN 1 TIME A WEEK 11/12 completed Not Available Not Available Not Available phentermine 37.5 mg tablet TAKE 1 TABLET BY MOUTH 30 MINS BEFORE OR 1-2 HRS AFTER BREAKFAST . TAKE 5 DAYS ON/2 DAYS OFF 11/12 completed Not Available Not Available Not Available valacyclovi r 500 mg tablet TAKE 1 TABLET BY MOUTH DAILY -FOR MAINTENAN CE 11/12 completed Not Available Not Available Not Available tramadol 50 mg tablet TAKE 1 TABLET BY MOUTH EVERY 4 TO 6 HOURS NEEDED FOR PAIN 11/12 completed Not Available Not Available Not Available terbinafine HCl 250 mg tablet TAKE 1 TABLET BY MOUTH EVERY DAY 11/12 completed Not Available Not Available Not Available estradiol 0.075 mg/24 hr weekly transdermal patch Apply 1 patch every week by transderm al route. active Not Available Not Available No t Available trazodone 100 mg tablet TAKE 1/2 TO 1 TABLET BY MOUTH AT NIGHT FOR SLEEP 11/12 completed Not Available Not Available Not Available phentermine 37.5 mg capsule TAKE 1 CAPSULE BY MOUTH EVERY DAY 11/12 completed Not Available Not Available Not Available bupropion HCl XL 300 mg 24 hr tablet, extended release TAKE 1 TABLET BY MOUTH EVERY MORNING 11/12 completed Not Available Not Available Not Available bupropion HCl XL 150 mg 24 hr tablet, extended release TAKE 1 TABLET BY MOUTH EVERY DAY 11/12 completed Not Available Not Available Not Available duloxetine 60 mg capsule,del ayed release TAKE ONE CAPSULE BY MOUTH DAILY 11/12 completed Not Available Not Available Not Available desvenlafax ine succinate ER 50 mg tablet,exte nded release 24 hr TAKE 1 TABLET BY MOUTH DAILY active Not Available Not Available No t Available Slynd 4 mg (28) tablet Take 1 tablet every day by oral route for 90 days. 11/16 completed Not Available Not Available Not Available Vitals Date Recorded Body height Body mass index (BMI) Body weight Systolic And Diastolic Provider Name and Address Organization Details Last Updated DateTime 08/21/2020 162.56 cm 27.6 kg/m2 22037.37 g 135/84 mm[Hg] Belia [facility] 08/21/2020 10:35:25 Date Recorded Body height Body mass index (BMI) Body weight Systolic And Diastolic Provider Name and Address Organization Details Last Updated DateTime 11/13/2023 162.56 cm 29.2 kg/m2 50666.7 g 122/77 mm[Hg] Tiff Presley [facility] 11/13/2023 11:25:24 Date Recorded Body height Body mass index (BMI) Body weight Systolic And Diastolic Provider Name and Address Organization Details Last Updated DateTime 11/16/2020 162.56 cm 28.3 kg/m2 44961.74 g 110/77 mm[Hg] Angelia L[facility] 11/16/2020 12:17:33 Social History Question Answer Notes LastModified by Organizat ion Details LastModified Time Tobacco Smoking Status Unknown If Ever Smoked Angelia Landa [facility] 11/16/2020 12:40:04 If You Are , What Was Your Level Of Alcohol Consumption Prior To ? None [email or web address] Information not available 11/16/2020 Are You Blind Or Do You Have Difficulty Seeing? No [email or web address] Information not available 11/16/2020 What Is Your Level Of Caffeine Consumption? Occasional Information not available 11/16/2020 In The 14 Days Before Symptom Onset, Have You Had Close Contact With A Laboratory-confir med COVID-19 While That Case Was Ill? No [email or web address] Information not available 11/16/2020 In The 14 Days Before Symptom Onset, Have You Had Close Contact With A Person Who Is Under Investigation For COVID-19 While That Person Was Ill? No [email or web address] Information not available 11/16/2020 Have You Been To An Area Known To Be High Risk For COVID-19? No [email or web address] Information not available 11/16/2020 Are You Deaf Or Do You Have Serious Difficulty Hearing? No [email or web address] Information not available 11/16/2020 What Type Of Diet Are You Following? REGULAR [email or web address] Information not available 11/16/2020 Have You Ever Been Counseled For Unhealthy Alcohol Use? No [email or web address] Information not available 11/16/2020 Do You Use Your Seat Belt Or Car Seat Routinely? Yes [email or web address] Information not available 11/16/2020 Do You Have Smoke And Carbon Monoxide Detectors In Your Home? Yes [email or web address] Information not available 11/16/2020 Do You Use Sunscreen Routinely? Yes [email or web address] Information not available 11/16/2020 Has Tobacco Cessation Counseling Been Provided? No [email or web address] Information not available 11/16/2020 Sex: Unknown Functional Status Question Answer Note LastModified by Organizat ion Details LastModified Time Do you use any illicit or recreational drugs? No [email or web address] Information not available 11/16/2020 Do you or have you ever used any other forms of tobacco or nicotine? No [email or web address] Information not available 11/16/2020 What is your level of alcohol consumption? Occasional [email or web address] Information not available 11/16/2020 Are you able to walk independently without assistance or assistive devices? [email or web address] Information not available 11/16/2020 What is your exercise level? Moderate [email or web address] Information not available 11/16/2020 Mental Status Question Answer Note LastModified by Organization D etails LastModified Time Do you feel stressed (tense, restless, nervous, or anxious, or unable to sleep at night)? [id number] [email or web address] Information not available 11/16/2020 Family History Nothing Reported. Medical History Condition Response Anxiety Disorder Y Other Y Endometriosis Y Depression/ depression Y High Cholesterol Y History of STI Y History of abnormal pap Y Cancer Y Gynecological History Statement/Question Response Abnormal Pap Yes Date of Last Mammogram Date of LMP 11/03/2020 On BCP's at Conception? N STIs/STDs Y HPV Vaccine N Colposcopy 11/16/2020 Current Control Method Tubal Ligat ion Age at First Child 18 Date of Last Colonoscopy Sexually Active? Y Date of DEXA bone scan Age of first menstrual cycle 9 Date of Last Pap Smear Sexual Problems? N Desired Control Method Hysterectom y LMP Approximate 08/21/2020 Obstetrics History GPAL:G 3 P 2 0 1 2 Type Value Full Term 2 Spontaneous 1 Living 2 Total 3 Past Encounters Encounter ID Performer Location Encounter Start Date Encounter Closed Date Diagnosis/Indication Diagnosis SNOMED-CT Code Diagnosis ICD10 Code Diagnosis IMO Codes Diagnosis Note [id number] Kayla Higuera [facility] [address] [address] 08/21/2020 10:13:43 08/21/2020 11:04:11 Gynecologic examination [id number] Z01.419 Suggested Calcium with Vitamin D 1200-1500m g daily. Patient advised to get an annual flu shot in the fall and she could obtain at [facility] or [facility] clinic. Also to obtain TDap vaccinatio n if you have not had one in the last 10 years. Recommend yearly mammograms . Encouraged monthly self breast exams. Encourage safe sexual practices, to use condoms and limit partners if not already in a monogamous relationsh ip. Engage in daily exercise of low impact aerobic exercise 45-60 minutes 4-5 times weekly. Avoid tobacco and illicit drugs as well as using moderation with alcohol intake less than 1-2 8 oz beverages daily. This lifestyle behavior pattern will lead to less health conditions and longer life span. If BMI greater than 25 weight watchers or dietary consult advised. All questions have been answered. Patient appears to understand informatio n, but if you have any questions please call or respond to this email. Pap/hpv done x 27yrs Hx of LEEP Hx of Endometrio sis Hx of Tubal ligation Consider Cologuard/ colonoscop y--will let us know Menorrhagia [id number] N9 2.0 Discussed all control options in great detail. Pt would like to start POP. She is aware of the risks and benefits. She has contraindi cations to use of OCP or other estrogen containing hormonal therapy. Pt will start her pills on the first thursday following the start of her period. She is aware it is not effective for control the first month. She is also aware of the importance of taking at the same time every day. Encouraged use of condoms as the pill does not protect against STD's. Will return in 3 months for med check. Consent was read and signed. Pt verbalized understand ing. We also discussed IUD/Endo-a blation She would like to trial SLYND x 3mos first as also having some night sweats. RTO x 3mos med check Consent signed [id number] Yee Kee [facility] [address],[place] [address] 11/16/2020 12:11:41 11/16/2020 13:16:25 Human papillomavirus deoxyribonucleic acid detected, high risk on cervical specimen [id number] R87.810 [id number] [facility] [address],[place] [address] 11/16/2020 12:10:17 11/16/2020 12:56:06 [id number] Kimberly Madden [facility] [address],[place] [address] 11/13/2023 11:22:35 11/16/2023 10:32:33 Menopausal symptom [id number] N95.1 Desires to continue estradiol patches for management of hot flashes/ni ght sweatsr/b/ a reviewed in-depth, pt verbalized understand ing and agrees to these risk. Refills sentmammog tulio orderedref erral for screening colonoscop ypap annually x 3 yrs, then test at 3 yr intervals for at least 25 years per gyne onc : next pap due 09/2024 Time spent in visit is a total of 35 mins with at least 50% of visit consisting of counseling and review of plan of care. Screening for malignant neoplasm of breast [id number] Z12.39 Screening for malignant neoplasm of colon [id number] Z12.11 Health Concerns Section Related Observation LastModified by Organization Detai ls LastModified Time None Recorded Concern Status LastModified by Organization Details LastModified Time None Recorded Advance Directives Directive None Recorded Payers Insurance Date Sequence Insurance Name Policy Number Policy Figueroa Covered Member ID Figueroa Member ID Guarantor Name 11/17/2023 1 [place] [id number] Jn Ricks [id number] Ami Ricks Notes Date Note Type Note Provider Name and Address Organization Details Recorded Time 1 text/html Annual GYNReported by PatientGenitourinary symptomsFor menstrual cycle, patient reportsmenorrhagia. For urinary symptoms, patient reportsno hematuriaandno incontinence. For vulva, patient reportsno genital lesion. For vagina, patient reportsnormal vaginal discharge.Breast symptomsFor breast, patient reportsno breast pain,no breast lump, andno nipple discharge.ContraceptionFo r current contraception, patient reportssatisfied with current contraceptionandtubal ligation.Endocrine symptomsFor sexual complaints, patient reportsno sexual complaints,no pain during intercourse, andnormal libido. For menopausal symptoms, patient reportsno menopausal symptomsandnormal vaginal lubrication.Psychological symptomsFor psychological symptoms, patient reportsno depression,no anxiety, andno pmdd.Preventative measuresFor preventive measures, patient reportsencourage self breast examination,encourage regular exercise,encourage no tobacco use,encourage regular mammograms starting age 40,history of abnormal pap smear/cervical dysplasia (leep hx),needs to schedule mammogram, andneeds to schedule colonoscopy. Kayla Higuera, EDA- [address], [place], [address], [facility] 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 11/16/2020 13:11:04 1 text/html Unbillable visit. Colpo training with Vidhya. SHILPA Hughes- [address], [place], [address], [facility] 11/16/2020 12:52:18 4 text/html 48yopresents for consulth/o h/o AIS s/p TLH, BS (02/19/21) : ovaries remain. Vaginal paps normal sincelast saw gyne onc 10/19/2023 : normal vaginal pap donehas been released from gyne onc with the recommendation of pap annually x 3 yrs, then test at 3 yr intervals for at least 25 years.Has been on estradiol patches prescribed from gyne onc for management of hot flashes/night sweats. This has significantly helped her symptoms and she desires to continue this method. needs updated mammogram, last 2021needs referral for screening colonoscopy denies h/o DVT/PE, breast cancer, or liver diseaseshe does NOT smoke SHILPA Pop [address], [place], [address], [facility] 11/16/2023 09:10:15 OBGyn Episode Ob Episode Information Episode Created Date Number of Fetuses Patient Bloodtype Patient rh Status Prepregnancy Weight lbs Domestic Partner Domestic Partner Phone Father Name Sales Agent Fire Insurance Status 11/17/19 21 1 CLOSED Fetus Data First Name Last Name Admitted to NICU Weight (g) Sex Living Outcome Pediatric Complications Fetus ID Race Codes Race Delivery Type , Spontane ous [id number] Avery Calculation Initial Avery Date Initial Exam Date Initial Exam Provider Initial Ultrasound Date Last Menstrual Period Date Ultra Sound Weeks Gestation 0 Eighteen To Twenty Week Avery Update Ultra Sound Date Fundal Height At Umbil Quickening Date Ultra Sound Latest Weeks Gestation Final Avery Confirmed By Final Avery Confirmed Date Final Avery Date Ultra Sound Latest Days Gestation 0 0 Menstrual History Last Menstrual Date Menses Monthly On Bcp Conception Prior Menses Frequency Hcg Plus Date Menarche Onset Age Delivery Information Delivery Date Delivery Type Labor Anesthesia Weeks Gestation Incision Type Labor Labor Length Hrs Delivered By Post Complications Tubal Sterilization Discharge Date Comments 7 Discharge Information Feeding Method Contraceptive Method Maternal HG B and HCT Levels Ob Episode Information Episode Created Date Number of Fetuses Patient Bloodtype Patient rh Status Prepregnancy Weight lbs Domestic Partner Domestic Partner Phone Father Name Sales Agent Fire Insurance Status 08/22/19 21 1 CLOSED Fetus Data First Name Last Name Admitted to NICU Weight (g) Sex Living Outcome Pediatric Complications Fetus ID Race Codes Race Delivery Type 3345.24 1 F Full Term [id number] Vaginal Delivery Avery Calculation Initial Avery Date Initial Exam Date Initial Exam Provider Initial Ultrasound Date Last Menstrual Period Date Ultra Sound Weeks Gestation 0 Eighteen To Twenty Week Avery Update Ultra Sound Date Fundal Height At Umbil Quickening Date Ultra Sound Latest Weeks Gestation Final Avery Confirmed By Final Avery Confirmed Date Final Avery Date Ultra Sound Latest Days Gestation 0 0 Menstrual History Last Menstrual Date Menses Monthly On Bcp Conception Prior Menses Frequency Hcg Plus Date Menarche Onset Age Delivery Information Delivery Date Delivery Type Labor Anesthesia Weeks Gestation Incision Type Labor Labor Length Hrs Delivered By Post Complications Tubal Sterilization Discharge Date Comments 3 39 Discharge Information Feeding Method Contraceptive Method Maternal HG B and HCT Levels Ob Episode Information Episode Created Date Number of Fetuses Patient Bloodtype Patient rh Status Prepregnancy Weight lbs Domestic Partner Domestic Partner Phone Father Name Sales Agent Fire Insurance Status 08/22/19 21 1 CLOSED Fetus Data First Name Last Name Admitted to NICU Weight (g) Sex Living Outcome Pediatric Complications Fetus ID Race Codes Race Delivery Type 4053.75 1704 F Full Term [id number] Forcep Assisted Vaginal Delivery Avery Calculation Initial Avery Date Initial Exam Date Initial Exam Provider Initial Ultrasound Date Last Menstrual Period Date Ultra Sound Weeks Gestation 0 Eighteen To Twenty Week Avery Update Ultra Sound Date Fundal Height At Umbil Quickening Date Ultra Sound Latest Weeks Gestation Final Avery Confirmed By Final Avery Confirmed Date Final Avery Date Ultra Sound Latest Days Gestation 0 0 Menstrual History Last Menstrual Date Menses Monthly On Bcp Conception Prior Menses Frequency Hcg Plus Date Menarche Onset Age Delivery Information Delivery Date Delivery Type Labor Anesthesia Weeks Gestation Incision Type Labor Labor Length Hrs Delivered By Post Complications Tubal Sterilization Discharge Date Comments 3 41 Discharge Information Feeding Method Contraceptive Method Maternal HG B and HCT Levels
--- OUTSIDE RECORDS SUMMARY | 2025-04-01 13:22 | XMS_ITS | Clinical Summary ---
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 Overview (10/16/2023): Added automatically from request for surgery [id number] Added automatically from request for surgery [id number] Surgical History Surgery Date Site/Laterality Comments LAPAROSCOPY 06/01/2005 - 05/31/2006 for endometriosis DILATION AND CURETTAGE OF UTERUS [phone] pt had multiple ADENOIDECTOMY 06/01/1981 - 05/31/1982 SECTION 06/01/2012 - 05/31/2013 TUBAL LIGATION 06/01/2012 - 05/31/2013 CERVICAL CONE BIOPSY 11/29/2020 - 12/29/2020 Medical History Medical History Date Comments PONV (postoperative nausea and vomiting) with demerol Endometriosis 2003 Adenocarcinoma of cervix (HCC) D xd 11/2020 Family History * Patient is adopted [...] 11:29 AM CDT Height 162 cm (5' 3.78) 10/16/2023 11:29 AM CDT Body Mass Index 29.55 10/16/2023 11:29 AM CDT Plan of Treatment Health Maintenance Due Date Last Done Comments Colon Cancer Screening-Colonoscopy 1975 Depression Screening 1975 Hepatitis C Screening 1975 DTaP/Tdap/Td Vaccine (1 - Tdap) 1986 Hepatitis B Screening 1993 Regular Well Visit/Exam 18-64 1993 Breast Cancer Screening-Mammogram 11/27/2022 11/27/2021 Cervical Cancer Screening 10/18/20242023, 10/10/2022, 10/04/2021 Covid-19 Vaccine (3 - 2024-2 6 season) 2025 12/12/2020, 11/21/2020 Influenza Vaccine (#1) 2025 Zoster Vaccine (1 of 2) 2025 Pneumococcal vaccine <65 Aged Out No longer [...] CDT 10/19/2023 9:37 AM CDT Narrative PATHOLOGY [facility] - 10/22/2023 9:21 AM CDT [facility] results best viewed via link to PDF [facility] Mar[facility] [place] [address] Note to Patients: This report may contain [...] REPORT FINAL Patient Name: AMI RICKS Gender: Gianna : 1975 (Age: 48) Address: [address] [place] [address] Hospital #: [id number] Service: UNKNOWN Location: Patient Type: [facility] SPECIMEN Taken: 10/19/2023 Received: 10/19/2023 Accessioned: 10/19/2023 [...] This test has been modified from the insurance solicitor's instructions. Its performance characteristics were determined by [facility] in a manner consistent with CLIA requirements. This test has not been cleared or approved by the U.S. Food and Drug Administration. Test Performed by: [address] [address] Cracker Sprayer: Feliciano Ndiaye M.D. Ph.D.; CLIA# [id number] [facility]/10/22/2023 09:21 MIK Youssef (ASCP) Report Electronically Reviewed [...] clinical information and biopsy results as indicated. [facility] Clinical Laboratory Improvement Amendments (CLIA) mandate that cytologic and histologic results be correlated for laboratory quality audit representative & improvement standards. FOR ALL HIGH-GRADE CASES [...] determined by the Surgical Pathology Department at [facility] as part of an ongoing quality control inspector heading program and in compliance with federally mandated [...] determined by the Surgical Pathology Department of [facility]. It has not been cleared or approved by the U. S. Food and Drug Administration. Sallie Huertas MD LAB CYTOLOGY ORDERABLES Final Result PATHOLOGY [facility] IO 3rd Floor [place], [place] [phone] * SCREENING MAMMOGRAM BILATERAL W ALOK (11/27/2021 2:38 PM CDT) Anatomical Region Laterality Modality Breast Bilateral Mammography Narrative 12/04/2021 10:11 AM CDT Mammogram Technique: Bilateral Digital Breast Tomosynthesis, Bilateral C-view 2D Screening mammogram. Views obtained: bilateral craniocaudal and bilateral mediolateral oblique. Computer Aided Detection was performed. Mammogram Findings: The present examination has been compared to a prior imaging study performed at [facility] on 01/29/2015. The breasts are heterogeneously [...] to a prior imaging study performed at [facility] on 01/29/2015. The breasts are heterogeneously [...] Most Recently Relevant to Health Maintenance Insurance BLUE ACCESS [place] [employer] [place] Care Teams Linux System Admin Relationship Specialty Start Date End Date Austen Law MD PCP - General Family Medicine 12/14/20 Yee Kee NP Nurse Practitioner Obstetrics and Gynecology 11/23/20
--- OUTSIDE RECORDS SUMMARY | 2025-04-01 13:22 | XMS_ITS | Clinical Summary ---
Author Organization [facility] Juwan Anthony Address [address] [place] [address] Care Team Providers Care Press Tender Long Goods Name Role Phone Rupert Bull MD Primary [...] (01/21/2023): Added automatically from request for surgery [id number] Family History Relation Name Status Comments Daughter [...] Health Maintenance Due Date Last Done Comments DTAP/TDAP/TD VACCINES (1 - Tdap) 1994 HEPATITIS B VACCINES (1 of 3 - 19+ 3-dose series) 1994 HPV/Cotest (21-29) 02/11/1996 HPV/Cotest (30-65) 2005 COLORECTAL SCREENING 02/11/2020 Colorectal Cancer Screening 02/11/2020 FIT-DNA Q 3 years 02/11/2020 FIT/FOBT Q 1 year 02/11/2020 Flex Sig/CT Colonography Q 5 years 02/11/2020 BREAST CANCER SCREENING 01/07/2023 01/07/2022, 11/27 INFLUENZA VACCINE (#1) 2024 ZOSTER VACCINE (1 of 2) 2025 CERVICAL CANCER SCREENING 10/10/2025 PAP SMEAR 10/10/2025 10/10/2022 Insurance [facility] EHR ACCESS CHOICE Care Teams Press Tender Long Goods Relationship Specialty Start Date End Date Rupert Bull MD [address] [place] [address] PCP - General Family Practice 01/21/23
--- OUTSIDE RECORDS SUMMARY | 2025-04-01 13:22 | XMS_ITS | Clinical Summary ---
Author Organization [facility] Address [address] [place] [address] Care Team Providers Care Fern Cutter Name Role Phone Unavailable Primary Care Provider Unavailabl e Source Comments [facility],non-owned Affiliates and Associated Physician Practices is amultiple site organization consisting of ambulatory clinics and hospital sitesin [place], [place], [place] and [place]. This disclosure is being madepursuant to the Care Everywhere program and may not contain all information available regarding this patient. Last updated 18.[facility] Social History Tobacco Use Types Packs/Day Years Used Date Smoking Tobacco: Never Assessed Comments Unknown Sex and Gender Information Value Date Recorded Sex Assigned at Not on file Legal Sex Female 2:55 PM CDT Gender Identity Not on file Sexual [...] SCREENING 1975 LIPID TESTING 1975 MAMMOGRAM 1975 HIV SCREENING 1990 HEPATITIS C SCREENING 02/05/1993 DTAP/TDAP/TD VACCINES (1 - Tdap) 1994 HEPATITIS B VACCINE (1 of 3 - 19+ 3-dose series) 1994 DEPRESSION SCREENING 06/01/2024 COVID-19 VACCINE (1 - 2023-2 5 season) 2025 INFLUENZA VACCINE (#1) 2025 PNEUMOCOCCAL VACCINE 50+ (1 of 1 - PCV) 2025 ZOSTER VACCINE (1 of 2) 2025 HIB VACCINE Aged Out No longer eligi ble based on patient's age to complete this topic HPV VACCINE Aged Out No longer eligi ble based on patient's age to complete this topic MENINGOCOCCAL (Group B) VACC INE SHARED DECISION-MAKING Aged Out No longer eligibl e based on patient's age to complete this topic MENINGOCOCCAL GROUPS A/C/Y/W VACCINE Aged Out No longer eligible b ased on patient's age to complete this topic
== END 2025-04-01 13:19 | disposition home or self-care (01) ==
LOC: ANHIMG 13:20
PROVIDERS: PCP Family Medicine; Visit Provider Nurse Practitioner Family
DX: M41.86 Other forms of scoliosis, lumbar region (principal); M41.84 Other forms of scoliosis, thoracic region; M43.06 Spondylolysis, lumbar region; M43.04 Spondylolysis, thoracic region
CPT/HCPCS: 72146; 72148